=== PATIENT | male | born 1995 | race Caucasian/White ===

== ENCOUNTER 2021-01-22 10:52 | Emergency (ER) | payer OTHER ==
[~2021-01-22] VITALS: Ht 167.6 cm; Wt 70.3 kg
--- NOTE | 2021-01-22 11:00 | NUR ---
BIB labd for otb, c/o lac to r index finger s/p punching glass 2 hr [employer]. Rates right index finger pain 3/10. Denies numbness/tingling in the extremity. Will continue to monitor the patient.
[2021-01-22] MEDS ORDERED: TDAP [DIPH/PERTUSSIS/TET] 0.5 ML VIAL IM ONE ×2 (11:27→11:30)
[2021-01-22] MEDS ORDERED: BACITRACIN ZINC OINT PACKET 1 EA PACKET TP ONE (11:30)
[2021-01-22] MEDS ORDERED: CEPH500C2 PO (12:25)
--- NOTE | 2021-01-22 12:34 | NUR ---
PT IS MEDICALLY CLEARED AND ON STABLE CONDITION FOR BOOKING. PT IS RELEASED UNDER THE CARE OF [employer] OFFICERS. PT IS ON STEADY GAIT WITHOUT ASSIST. PT LEFT ON CUFFS
[2021-01-22 12:37] VITALS: BP 133/87
== END 2021-01-22 12:37 ==
LOC: ER 11:05
DX: S61.200A Unspecified open wound of right index finger without damage to nail, initial encounter (principal); W22.8XXA Striking against or struck by other objects, initial encounter; Y93.89 Activity, other specified; Y92.89 Other specified places as the place of occurrence of the external cause; Y99.8 Other external cause status
CPT/HCPCS: 73130; 90471; 90715; 99283; A6403